=== PATIENT | male | born 1985 | race African-American/Black ===

== ENCOUNTER 2017-04-26 10:47 | Emergency (ER) | payer OTHER ==
[~2017-04-26] VITALS: Ht 170.2 cm; Wt 63.5 kg
[2017-04-26] MEDS ORDERED: LORazepam Inj 2mg/ml 1ml IV ONE (11:15)
[2017-04-26] MEDS: Morphine Sulfate 4mg/ml Inj IVP ONE (11:46)
[2017-04-26 12:02] LABS: APPEARANCE,URINE CLEAR; BASOPHILS % (AUTO) 3.7 % (0.0-2.0); EOSINOPHILS % (AUTO) 3.8 % (0.0-3.0); KETONES,URINE 1+ (NEGATIVE); LEUKOCYTE ESTERASE ,URINE 1+ (NEGATIVE); LYMPHOCYTES % (AUTO) 53.4 % (20.0-45.0); MEAN CORPUSCULAR HGB CONC 33.7 G/DL (32.0-36.0); MEAN CORPUSCULAR VOLUME 101 FL (80-99); MEAN PLATELET VOLUME 6.2 FL (6.5-10.1); MONOCYTES % (AUTO) 11.9 % (1.0-10.0); NEUTROPHILS % (AUTO) 27.3 % (45.0-75.0); NITRITE,URINE NEGATIVE (NEGATIVE); PH,URINE 5 (4.5-8.0); PLATELET COUNT 242 K/UL (150-450); PROTEIN,URINE 2+ (NEGATIVE); RED BLOOD COUNT 4.34 M/UL (4.70-6.10); RED CELL DISTRIBUTION WIDTH 12.5 % (11.6-14.8); UROBILINOGEN,URINE 4 MG/DL (0.0-1.0)
[2017-04-26 12:14] LABS: BACTERIA,URINE OCCASIONAL /HPF; ICTOTEST POSITIVE; MUCUS,URINE MODERATE /LPF (NONE/OCC); SQUAMOUS EPITHELIAL CELL,UR FEW /LPF (NONE/OCC)
[2017-04-26 12:22] LABS: TROPONIN I < 0.30 ng/mL (<=0.30)
[2017-04-26 12:25] LABS: ALANINE AMINOTRANSFERASE 109 U/L (3-41); ALBUMIN/GLOBULIN RATIO 2.3 (1.0-2.7); ANION GAP 20 (5-15); ASPARTATE AMINO TRANSFERASE 192 U/L (5-40); CALCIUM 9.8 mg/dL (8.6-10.2); CARBON DIOXIDE 21 mEQ/L (20-30); CHLORIDE 102 mEQ/L (98-107); CREATININE 0.9 mg/dL (0.7-1.2); GLOMERULAR FILTRATION RATE > 60 mL/min (>60); HEMOLYSIS 6; POTASSIUM 3.8 mEQ/L (3.4-4.9); SODIUM 143 mEQ/L (135-145); TOTAL PROTEIN 7.3 g/dL (6.6-8.7)
[2017-04-26 12:36] LABS: CKMB 15.6 ng/mL (< 6.7)
[2017-04-26 12:46] LABS: BILIRUBIN,DIRECT 0.4 mg/dL (0.1-0.3)
[2017-04-26 12:47] VITALS: BP 118/76
--- NOTE | 2017-04-26 13:25 | Diagnostic Imaging Report ---
Indications: Bilateral flank pain Technique: Continuous helical CT imaging of the abdomen and pelvis was performed with automatic exposure control on a Siemens sensation [address] scanner. Axial, coronal, and sagittal images were reconstructed at 3 mm slice thickness. No oral or IV contrast was administered per protocol. CTDI volume(s): 10 mGy Total DLP: 524 mGy-cm Findings: Comparison: None. Kidneys, ureters, distended urinary bladder demonstrate no intraparenchymal or intraluminal stones, collecting system or ureteral dilation, perinephric or periureteral stranding. The appendix is unremarkable. The gastrointestinal tract is nondistended. Collapsed. Segments of left-sided colon difficult to evaluate. No obvious mural thickening, adjacent stranding, extraluminal gas or fluid collections are demonstrated. Unenhanced liver parenchyma mildly decreased attenuation. Remainder of visualized abdominopelvic anatomy demonstrates no other obvious abnormality, though lack of oral and IV contrast limits evaluation. Pleural-based linear densities in both lung bases.. L3-4 disc space narrowing with marginal osteophyte formation. IMPRESSION: No evidence of renal or ureteral stone, hydronephrosis or hydroureter. Unremarkable appendix -- no evidence of acute appendicitis. No other evidence of acute abdominopelvic disease. Lack of oral and IV contrast limits evaluation, however, and subtle abnormalities may be missed. Repeat CT scan with full oral and IV contrast preparation recommended for more complete evaluation, as clinically indicated. Suggestion of hepatic steatosis Pulmonary bibasal subsegmental atelectasis Mild lumbar degenerative disc disease The CT scanner at [facility] is accredited by the [employer] and the scans are performed using protocols designed to limit radiation exposure to as low as reasonably achievable to attain images of sufficient resolution adequate for diagnostic evaluation.
[2017-04-26] MEDS ORDERED: NORCO 5-325 TA1 EACH ORAL (13:45)
[2017-04-26] MEDS ORDERED: XANAX0.25 MG ORAL (13:45)
[2017-04-26] MEDS ORDERED: BACTRIM DS TAB1 EAC1 ORAL (13:49)
[2017-04-26 13:50] VITALS: BP 113/78
--- NOTE | 2017-04-27 07:16 | Emergency Room Report ---
History of Present Illness General Chief Complaint: General Complaint Source: Patient Present Illness HPI Patient presents emergency department today complaining of severe anxiety shortness of breath chest discomfort and right flank pain. Patient states that he gets these attacks from time to time and symptoms are fairly severe. He is tearful and unable to provide much history. Patient however does state that he was at [facility] a few days ago and was told that everything was okay. I contacted [facility] and at that time had laboratory workup in the past he has had workup for alcohol abuse. And drug abuse. There has not been a CAT scan performed in the past.No other modifying factors. No other associated signs and symptoms. No other complaints were noted. Allergies: Coded Allergies: No Known Allergies (Unverified , 04/26/17) Patient History Past Medical History: CAD, other - kidney problem Past Surgical History: none Pertinent Family History: none Social History: Reports: alcohol use, drug use, smoking Reviewed Nursing Documentation: PMH: Agreed, PSxH: Agreed Nursing Documentation-PMH Past Medical History: No History, Except For Hx Cardiac Problems: Yes Hx Dialysis: Yes - 'undiagonsed renal problem' History Of Psychiatric Problem: Yes Review of Systems All Other Systems: limited - atient is anxious and noncompliant Physical Exam Vital Signs Date Time Temp Pulse Resp B/P Pulse Ox O2 Delivery O2 Flow Rate FiO2 04/26/17 10:41 98.1 89 18 159/91 99 Room Air Sp02 EP Interpretation: reviewed, normal General Appearance: alert, moderate distress - nxious Head: atraumatic Eyes: bilateral eye normal inspection ENT: normal ENT inspection, hearing grossly normal, normal voice Neck: normal inspection, full range of motion, supple, no bony tend Respiratory: normal inspection, lungs clear, normal breath sounds, no respiratory distress, no retraction, no wheezing Cardiovascular #1: regular rate, rhythm, no edema Gastrointestinal: normal inspection, normal bowel sounds, non tender, soft, no guarding, no hernia Genitourinary: other - right flank tenderness Musculoskeletal: normal inspection, back normal, normal range of motion Neurologic: normal inspection, alert, responsive, speech normal Psychiatric: depressed affect, anxious Skin: normal inspection, normal color, no rash Medical Decision Making Diagnostic Impression: Primary Impression: UTI (urinary tract infection) Qualified Codes: N30.00 - Acute cystitis without hematuria Additional Impressions: Chronic pain Qualified Codes: G89.4 - Chronic pain syndrome Anxiety ER Course Patient presents emergency department today complaining dysuria or flank pain chest pain. Differential considerations include acute electrolyte abnormality, acute kidney stone, anxiety, UTI just to name a few.Given the severity of the patient's presentation I felt this is a highly complex patient. This patient required extensive workup. Patient laboratory workup was normal. EKG chest x- ray CT scan were not impressive. Urine did show small amount of blood leukocytes consistent with UTI. Patient was given a prescription for antibiotics and Xanax for anxiety. Patient was given benzodiazepines in emergency Department symptoms improved.Given the patient feels much better, and he had a negative workup, I feel the patient can be discharged home.Patient is advised to follow up with primary doctor in 2-3 days and return the emergency room for any worsening symptoms and as needed. Labs Test 04/26/17 11:30 White Blood Count 4.0 K/UL (4.8-10.8) Red Blood Count 4.34 M/UL (4.70-6.10) Hemoglobin 14.8 G/DL (14.2-18.0) Hematocrit 43.8 % (42.0-52.0) Mean Corpuscular Volume 101 FL (80-99) Mean Corpuscular Hemoglobin 34.0 PG (27.0-31.0) Mean Corpuscular Hemoglobin Concent 33.7 G/DL (32.0-36.0) Red Cell Distribution Width 12.5 % (11.6-14.8) Platelet Count 242 K/UL (150-450) Mean Platelet Volume 6.2 FL (6.5-10.1) Neutrophils (%) (Auto) 27.3 % (45.0-75.0) Lymphocytes (%) (Auto) 53.4 % (20.0-45.0) Monocytes (%) (Auto) 11.9 % (1.0-10.0) Eosinophils (%) (Auto) 3.8 % (0.0-3.0) Basophils (%) (Auto) 3.7 % (0.0-2.0) Urine Color Yellow Urine Appearance Clear Urine pH 5 (4.5-8.0) Urine Specific [place] 1.025 (1.005-1.035) Urine Protein 2+ (NEGATIVE) Urine Glucose (UA) Negative (NEGATIVE) Urine Ketones 1+ (NEGATIVE) Urine Occult Blood 1+ (NEGATIVE) Urine Nitrite Negative (NEGATIVE) Urine Bilirubin 1+ (NEGATIVE) Urine Ictotest Positive Urine Urobilinogen 4 MG/DL (0.0-1.0) Urine Leukocyte Esterase 1+ (NEGATIVE) Urine RBC 2-4 /HPF (0 - 0) Urine WBC 2-4 /HPF (0 - 0) Urine Squamous Epithelial Cells Few /LPF (NONE/OCC) Urine Bacteria Occasional /HPF (NONE) Urine Mucus Moderate /LPF (NONE/OCC) Sodium Level 143 mEQ/L (135-145) Potassium Level 3.8 mEQ/L (3.4-4.9) Chloride Level 102 mEQ/L (98-107) Carbon Dioxide Level 21 mEQ/L (20-30) Anion Gap 20 (5-15) Blood Urea Nitrogen 15 mg/dL (7-23) Creatinine 0.9 mg/dL (0.7-1.2) Estimat Glomerular Filtration Rate > 60 mL/min (>60) Glucose Level 100 mg/dL (74-106) Calcium Level 9.8 mg/dL (8.6-10.2) Total Bilirubin 1.5 mg/dL (0.0-1.2) Direct Bilirubin 0.4 mg/dL (0.1-0.3) Aspartate Amino Transf (AST/SGOT) 192 U/L (5-40) Alanine Aminotransferase (ALT/SGPT) 109 U/L (3-41) Alkaline Phosphatase 85 U/L (40-129) Total Creatine Kinase 710 U/L (38-174) Creatine Kinase MB 15.6 ng/mL (< 6.7) Creatine Kinase MB Relative Index 2.1 Troponin I < 0.30 ng/mL (<=0.30) Total Protein 7.3 g/dL (6.6-8.7) Albumin 5.1 g/dL (3.5-5.2) Globulin 2.2 g/dL Albumin/Globulin Ratio 2.3 (1.0-2.7) Lipase 30 U/L (< 60) Urine Opiates Screen Negative (NEGATIVE) Urine Barbiturates Screen Negative (NEGATIVE) Phencyclidine (PCP) Screen Negative (NEGATIVE) Urine Amphetamines Screen Negative (NEGATIVE) Urine Benzodiazepines Screen Positive (NEGATIVE) Urine Cocaine Screen Negative (NEGATIVE) Urine Marijuana (THC) Screen Positive (NEGATIVE) EKG Diagnostic Results Rate: normal Rhythm: NSR ST Segments: no acute changes Rhythm Strip Diag. Results EP Interpretation: yes Rate: 80s Rhythm: NSR, no PVC's, no ectopy Chest X-Ray Diagnostic Results Chest X-Ray Diagnostic Results : Chest X-Ray Ordered: Yes # of Views/Limited/Complete: 1 View Indication: Chest Pain EP Interpretation: Yes Interpretation: no consolidation, no effusion, no pneumothorax, no acute cardiopulmonary disease Impression: No acute disease Interpreting ER Provider: Electronically signed by Emilio King MD Last Vital Signs Date Time Temp Pulse Resp B/P Pulse Ox O2 Delivery O2 Flow Rate FiO2 04/26/17 13:50 69 14 113/78 98 Room Air 04/26/17 12:47 98.0 Status: improved Disposition: HOME, SELF-CARE Condition: Stable Scripts Trimethoprim/Sulfamethoxazole 160/800* (BACTRIM DS TABLET*) 1 Each Tablet 1 TAB ORAL Q12H, #14 TAB 0 Refills Prov: EMILIO KING M.D. 04/26/17 Alprazolam* (XANAX*) 0.25 Mg Tablet 0.25 MG ORAL TID Y for PRN Agitation/Anxiety, #20 TAB 0 Refills Prov: EMILIO KING M.D. 04/26/17 Hydrocodone Bit/Acetaminophen 5-325* (NORCO 5-325*) 1 Each Tablet 1 TAB ORAL Q6H Y for For Pain, #20 TAB 0 Refills Prov: EMILIO KING M.D. 04/26/17 Patient Instructions: Urinary Tract Infection, Panic Attacks, Stress and Stress Management EMILIO KING M.D. Apr 27, 2017 07:16
--- NOTE | 2017-04-27 08:33 | Diagnostic Imaging Report ---
Indication: Tachypnea, shortness of breath Technique: Single portable AP view of the chest. Findings: Comparison: None. Minimal scoliosis in thoracic spine. The extra pulmonary soft tissues, cardiomediastinal silhouette, pulmonary vasculature and parenchyma, and pleural surfaces are unremarkable. IMPRESSION: Scoliosis Otherwise negative portable AP chest .
== END 2017-04-26 13:50 | disposition home or self-care (01) ==
LOC: EDBD 10:47 → EMR 11:30
DX: N39.0 Urinary tract infection, site not specified (principal); G89.29 Other chronic pain; F41.9 Anxiety disorder, unspecified; F17.200 Nicotine dependence, unspecified, uncomplicated; I25.10 Atherosclerotic heart disease of native coronary artery without angina pectoris; M51.36 Other intervertebral disc degeneration, lumbar region; M41.9 Scoliosis, unspecified
CPT/HCPCS: 36415; 71010; 74176; 80053; 80300; 81003; 82248; 82550; 82553; 83690; 84484; 85025; 93005; 96374; 96375; 99284; J2270; J2405

== ENCOUNTER 2017-05-17 18:49 | Emergency (ER) | payer OTHER ==
[~2017-05-17] VITALS: Ht 170.2 cm; Wt 68.0 kg
[~2017-05-17 18:49] MED LIST: BACTRIM DS TAB1 EAC1 ORAL; NORCO 5-325 TA1 EACH ORAL; XANAX0.25 MG ORAL
[2017-05-17] MEDS ORDERED: LORazepam Inj 2mg/ml 1ml IV ONE (19:00)
[2017-05-17 19:01] VITALS: BP 127/76
--- NOTE | 2017-05-17 19:11 | Emergency Room Report ---
History of Present Illness General Chief Complaint: General Complaint Source: Patient, EMS Present Illness HPI 31YOM BIBEMS for "severe anxiety" and "pain all over." Patient told EMS was at other hospitals recently for "same thing." He denies SI, HI, AVH Patient very tearful, not really providing additional HPI patient was here 04/26 Had Labs/UTox and CTAP UTox + for MJ Was given Rx for xanax Allergies: Coded Allergies: No Known Allergies (Unverified , 04/26/17) Patient History Past Medical History: none Past Surgical History: none Pertinent Family History: none Social History: Denies: alcohol use, drug use, smoking Immunizations: UTD Reviewed Nursing Documentation: PMH: Agreed, PSxH: Agreed Nursing Documentation-PMH Hx Cardiac Problems: Yes Hx Dialysis: Yes - 'undiagonsed renal problem' History Of Psychiatric Problem: Yes - anxiety Review of Systems All Other Systems: negative except mentioned in HPI Physical Exam Vital Signs Date Time Temp Pulse Resp B/P Pulse Ox O2 Delivery O2 Flow Rate FiO2 05/17/17 18:49 98.4 65 28 150/85 98 Room Air Sp02 EP Interpretation: reviewed, normal General Appearance: normal inspection, well appearing, no apparent distress, alert, GCS 15, non-toxic Head: normocephalic, atraumatic Eyes: bilateral eye EOMI, bilateral eye PERRL ENT: normal ENT inspection, hearing grossly normal, normal voice Neck: normal inspection, full range of motion, supple, no bony tend Respiratory: normal inspection, lungs clear, normal breath sounds, no respiratory distress, no retraction, no wheezing Cardiovascular #1: no edema, no gallop, no JVD, tachycardia Gastrointestinal: normal inspection, normal bowel sounds, non tender, soft, no guarding, no hernia Genitourinary: no CVA tenderness Musculoskeletal: normal inspection, back normal, normal range of motion, Priya' s Sign negative Neurologic: normal inspection, alert, oriented x3, responsive, child psychology teacher III-XII nml as tested, motor strength/tone normal, speech normal Psychiatric: normal inspection, judgement/insight normal, mood/affect normal Skin: normal inspection, normal color, no rash Lymphatic: normal inspection Medical Decision Making Diagnostic Impression: Primary Impression: Anxiety Additional Impressions: Tachycardia Drug-seeking behavior ER Course Initial tachycardia resolved Lungs CTAB O2 sat normal Low suspicion for PTX or other acute cardiopulm process Feels better after IV ativan Asking for "full body MRI" that his "doctor ordered." States no CT/blood tests were done on previous ED visit when in fact they were Asking for Rx Noco Concern for drug seeking behavior Last Vital Signs Date Time Temp Pulse Resp B/P Pulse Ox O2 Delivery O2 Flow Rate FiO2 05/17/17 19:01 99 23 127/76 100 Room Air 05/17/17 18:49 98.4 Status: improved Disposition: HOME, SELF-CARE ALYSE IVEY M.D. May 17, 2017 19:11
[2017-05-17 20:20] VITALS: BP 126/88
[2017-05-18] MEDS ORDERED: NKM (22:15)
== END 2017-05-17 20:20 | disposition home or self-care (01) ==
LOC: EDBD 18:49 → EMR 19:33
DX: F41.9 Anxiety disorder, unspecified (principal); R00.0 Tachycardia, unspecified; Z76.5 Malingerer [conscious simulation]
CPT/HCPCS: 96374; 99284

== ENCOUNTER 2017-05-18 22:21 | Emergency (ER) | payer OTHER ==
[~2017-05-18] VITALS: Ht 170.2 cm; Wt 56.7 kg
[~2017-05-18 22:21] MED LIST changes: +NKM
--- NOTE | 2017-05-18 22:21 | Emergency Room Report ---
History of Present Illness General Source: Patient, Medical Record, EMS Present Illness HPI 31YOM BIBEMS for anxiety +AOB, drinking ETOH today Patient here multiple times recently for same Last seen here by me Did not followup with outpatient psych Requesting Rx Talmage or Ativan again Strong concern for narcotic/benzo seeking behavior Per EMS, vitals stable on scene. Not tachycardic. Was able to be reassured and calmed Allergies: Coded Allergies: No Known Allergies (Unverified , 05/18/17) Patient History Past Medical History: none Past Surgical History: none Pertinent Family History: none Social History: Reports: alcohol use, drug use Immunizations: UTD Reviewed Nursing Documentation: PMH: Agreed, PSxH: Agreed Review of Systems All Other Systems: negative except mentioned in HPI Physical Exam Sp02 EP Interpretation: reviewed, normal General Appearance: normal inspection, well appearing, no apparent distress, alert, GCS 15, non-toxic, other - +AOB Head: normocephalic, atraumatic Eyes: bilateral eye EOMI, bilateral eye PERRL ENT: normal ENT inspection, hearing grossly normal, normal voice Neck: normal inspection, full range of motion, supple, no bony tend Respiratory: normal inspection Cardiovascular #1: regular rate, rhythm, no edema Gastrointestinal: normal inspection, normal bowel sounds, non tender, soft, no guarding, no hernia Genitourinary: no CVA tenderness Musculoskeletal: normal inspection, back normal, normal range of motion, Priya' s Sign negative Neurologic: normal inspection, alert, oriented x3, responsive, senior linux unix engineer III-XII nml as tested, motor strength/tone normal, speech normal Psychiatric: normal inspection, judgement/insight normal, mood/affect normal Skin: normal inspection Lymphatic: normal inspection Medical Decision Making Diagnostic Impression: Primary Impression: Anxiety Additional Impression: Drug-seeking behavior Status: improved Disposition: HOME, SELF-CARE ALYSE IVEY M.D. May 18, 2017 22:21
[2017-05-18] MEDS ORDERED: LORazepam 0.5mg tab ORAL ONE (22:30)
[2017-05-18 23:11] VITALS: BP 135/90
[2017-05-18 23:14] VITALS: BP 134/90
== END 2017-05-18 23:50 | disposition home or self-care (01) ==
LOC: EDBD 22:21 → EMR 22:25
DX: F41.9 Anxiety disorder, unspecified (principal); Z76.5 Malingerer [conscious simulation]
CPT/HCPCS: 99282

== ENCOUNTER 2017-06-04 12:26 | Emergency (ER) | payer SELFPAY ==
[~2017-06-04] VITALS: Ht 172.7 cm; Wt 63.5 kg
[2017-06-04] VITALS (8 sets, daily range): BP systolic 108–145; BP diastolic 72–107
[2017-06-04] MEDS ORDERED: LORazepam 1mg tab ORAL ONE (14:45)
--- NOTE | 2017-06-04 14:47 | Emergency Room Report ---
History of Present Illness General Chief Complaint: General Complaint Source: Patient, Medical Record (ALYSE RUBI M.D.) Present Illness HPI 31YOM [address] for anxiety - anxious about "everything." Homeless. has family here but cough surfing because "they dont want me." Multiple visits here for anxiety Associated with weakness, loss of appetite, low energy Denies SI, HI, AVH Denies history of depression States signed himself out of [facility] last week where he was told he had "high liver enzymes." He endorses to ETOH. Both previous vists here patient was intoxicated as well. (ALYSE RUBI M.D.) Allergies: Coded Allergies: No Known Allergies (Unverified , 04/26/17) Nursing Documentation-[facility] Past Medical History: No History, Except For Hx Cardiac Problems: Yes Hx Dialysis: Yes - 'undiagonsed renal problem' (ALYSE RUBI M.D.) Physical Exam Vital Signs Date Time Temp Pulse Resp B/P (MAP) Pulse Ox O2 Delivery O2 Flow Rate FiO2 06/04/17 12:23 98.4 77 18 145/107 99 Room Air (ALYSE RUBI M.D.) Medical Decision Making Diagnostic Impression: Primary Impression: Alcohol intoxication Qualified Codes: F10.920 - Alcohol use, unspecified with intoxication, uncomplicated Additional Impression: Weakness ER Course Please see note from Dr. Rubi. Patient evaluated and states too weak to go. Dr. Rubi requested that we obtain social services specialist consult. Patient signed out to Dr. Mayo. Laboratory Tests Test 06/04/17 14:40 White Blood Count 3.4 K/UL (4.8-10.8) L Red Blood Count 4.17 M/UL (4.70-6.10) L Hemoglobin 14.3 G/DL (14.2-18.0) Hematocrit 42.2 % (42.0-52.0) Mean Corpuscular Volume 101 FL (80-99) H Mean Corpuscular Hemoglobin 34.3 PG (27.0-31.0) H Mean Corpuscular Hemoglobin Concent 33.9 G/DL (32.0-36.0) Red Cell Distribution Width 12.4 % (11.6-14.8) Platelet Count 257 K/UL (150-450) Mean Platelet Volume 6.0 FL (6.5-10.1) L Neutrophils (%) (Auto) % (45.0-75.0) Lymphocytes (%) (Auto) % (20.0-45.0) Monocytes (%) (Auto) % (1.0-10.0) Eosinophils (%) (Auto) % (0.0-3.0) Basophils (%) (Auto) % (0.0-2.0) Differential Total Cells Counted 100 Neutrophils % (Manual) 48 % (45-75) Lymphocytes % (Manual) 43 % (20-45) Monocytes % (Manual) 7 % (1-10) Eosinophils % (Manual) 0 % (0-3) Basophils % (Manual) 2 % (0-2) Band Neutrophils 0 % (0-8) Platelet Estimate Adequate Platelet Morphology Normal Red Blood Cell Morphology Normal Sodium Level 142 mEQ/L (135-145) Potassium Level 4.1 mEQ/L (3.4-4.9) Chloride Level 102 mEQ/L (98-107) Carbon Dioxide Level 27 mEQ/L (20-30) Anion Gap 13 (5-15) Blood Urea Nitrogen 17 mg/dL (7-23) Creatinine 0.9 mg/dL (0.7-1.2) Estimate Glomerular Filtration Rate > 60 mL/min (>60) Glucose Level 112 mg/dL (74-106) H Calcium Level 8.7 mg/dL (8.6-10.2) Total Bilirubin 1.5 mg/dL (0.0-1.2) H Direct Bilirubin 0.8 mg/dL (0.1-0.3) H Aspartate Amino Transferase (AST) 781 U/L (5-40) H Alanine Aminotransferase (ALT) 349 U/L (3-41) H Alkaline Phosphatase 113 U/L (40-129) Total Creatine Kinase 74 U/L (38-174) Creatine Kinase MB < 1.5 ng/mL (< 6.7) Creatine Kinase MB Relative Index Troponin I < 0.30 ng/mL (<=0.30) Total Protein 6.3 g/dL (6.6-8.7) L Albumin 4.2 g/dL (3.5-5.2) Globulin 2.1 g/dL Albumin/Globulin Ratio 2.0 (1.0-2.7) Urine Opiates Screen Negative (NEGATIVE) Urine Barbiturates Screen Negative (NEGATIVE) Phencyclidine (PCP) Screen Negative (NEGATIVE) Urine Amphetamines Screen Negative (NEGATIVE) Urine Benzodiazepines Screen Negative (NEGATIVE) Urine Cocaine Screen Negative (NEGATIVE) Urine Marijuana (THC) Screen Positive (NEGATIVE) H Serum Alcohol 284 mg/dL (Hans Cali M.D.) ER Course Patient signed out to me. Patient came in complaining of anxiety and alcohol intoxication. He slept for several hours here. He walked to the bathroom without any difficulty. I see no need for social services specialist consult in the middle of the night. We'll discharge home. (NUNU MAYO M.D.) Last Vital Signs Date Time Temp Pulse Resp B/P (MAP) Pulse Ox O2 Delivery O2 Flow Rate FiO2 06/04/17 13:17 61 18 120/88 99 Room Air 06/04/17 12:23 98.4 (ALYSE RUBI M.D.) Status: improved (Hans Cali M.D.) Status: improved (NUNU MAYO M.D.) Disposition: HOME, SELF-CARE Condition: Stable Scripts Chlordiazepoxide Hcl* (LIBRIUM*) 10 Mg Capsule 10 MG ORAL THREE TIMES A DAY, #15 CAP 0 Refills Prov: NUNU MAYO M.D. 06/05/17 Referrals: [facility] (PCP) Additional Instructions: abstain from alcohol. Followup with your DrTri in 7 days. Return if worse. ALYSE RUBI M.D. Jun 04, 2017 14:47 Hans Cali M.D. Jun 04, 2017 23:40 NUNU MAYO M.D. Jun 05, 2017 00:03
[2017-06-04 15:16] LABS: MEAN CORPUSCULAR HEMOGLOBIN 34.3 PG (27.0-31.0); MEAN CORPUSCULAR HGB CONC 33.9 G/DL (32.0-36.0); MEAN CORPUSCULAR VOLUME 101 FL (80-99); PLATELET COUNT 257 K/UL (150-450); RED BLOOD COUNT 4.17 M/UL (4.70-6.10); RED CELL DISTRIBUTION WIDTH 12.4 % (11.6-14.8); WHITE BLOOD COUNT 3.4 K/UL (4.8-10.8)
[2017-06-04 15:33] LABS: ALANINE AMINOTRANSFERASE 349 U/L (3-41); ANION GAP 13 (5-15); ASPARTATE AMINO TRANSFERASE 781 U/L (5-40); CALCIUM 8.7 mg/dL (8.6-10.2); CARBON DIOXIDE 27 mEQ/L (20-30); CHLORIDE 102 mEQ/L (98-107); CREATININE 0.9 mg/dL (0.7-1.2); GLOMERULAR FILTRATION RATE > 60 mL/min (>60); HEMOLYSIS 17; POTASSIUM 4.1 mEQ/L (3.4-4.9); SODIUM 142 mEQ/L (135-145); TOTAL PROTEIN 6.3 g/dL (6.6-8.7); TROPONIN I < 0.30 ng/mL (<=0.30)
[2017-06-04 15:43] LABS: CKMB < 1.5 ng/mL (< 6.7)
[2017-06-04 15:53] LABS: BILIRUBIN,DIRECT 0.8 mg/dL (0.1-0.3)
[2017-06-04 16:33] LABS: BAND NEUTROPHILS % (MANUAL) 0 % (0-8); BASOPHILS % (MANUAL) 2 % (0-2); EOSINOPHILS % (MANUAL) 0 % (0-3); LYMPHOCYTES % (MANUAL) 43 % (20-45); NEUTROPHILS % (MANUAL) 48 % (45-75); PLATELET ESTIMATE ADEQUATE; PLATELET MORPHOLOGY NORMAL; TOTAL CELLS COUNTED 100
[2017-06-05] MEDS ORDERED: LIBRIUM10 MG ORAL (00:03)
[2017-06-05 00:10] VITALS: BP 126/78
--- NOTE | 2017-06-05 11:36 | Diagnostic Imaging Report ---
Indication: Dyspnea Comparison: 04/26/17 A single view chest radiograph was obtained. Findings: Cardiomediastinal appearance is within normal limits for age. Pulmonary vascularity is appropriate. The diaphragmatic contour is smooth and costophrenic angles are sharp. No pleural effusions are identified. The bones are unremarkable. Impression: No acute findings
--- NOTE | 2017-06-06 16:33 | Cardiology Report ---
APPROVED REPORT EKG Measurement Heart [id number] Normal sinus rhythm Normal ECG
== END 2017-06-05 00:10 | disposition home or self-care (01) ==
LOC: EDBD 12:26 → EMR 14:44
DX: F10.129 Alcohol abuse with intoxication, unspecified (principal); R53.1 Weakness; F41.9 Anxiety disorder, unspecified; Z59.0 Homelessness
CPT/HCPCS: 36415; 71010; 80053; 80300; 82248; 82550; 82553; 84484; 85007; 85025; 93005; 96360; 96361; 99284; G0480; 80329

== ENCOUNTER 2017-08-03 11:20 | Emergency (ER) | payer OTHER ==
[~2017-08-03] VITALS: Ht 165.1 cm; Wt 59.0 kg
[~2017-08-03 11:20] MED LIST changes: +LIBRIUM10 MG ORAL
[2017-08-03] MEDS ORDERED: Pantoprazole Inj IV ONE (11:30)
[2017-08-03] MEDS ORDERED: LORazepam Inj 2mg/ml 1ml IV ONE (11:30)
--- NOTE | 2017-08-03 12:15 | Diagnostic Imaging Report ---
Indication: COUGH Technique: One view of the chest Comparison: 06/04/2017 Findings: Lungs and pleural spaces are clear. Heart size is normal. No significant change Impression: No acute process
[2017-08-03 12:28] LABS: ALANINE AMINOTRANSFERASE 144 U/L (12-78); ALBUMIN 3.8 G/DL (3.4-5.0); ALBUMIN/GLOBULIN RATIO 1.1 (1.0-2.7); ALKALINE PHOSPHATASE 218 U/L (46-116); ANION GAP 18 mmol/L (5-15); ASPARTATE AMINO TRANSFERASE 152 U/L (15-37); BILIRUBIN,TOTAL 4.1 MG/DL (0.2-1.0); BLOOD UREA NITROGEN 23 mg/dL (7-18); CARBON DIOXIDE 18 MMOL/L (21-32); CHLORIDE 100 MMOL/L (98-107); CREATININE 1.1 MG/DL (0.55-1.30); POTASSIUM 3.6 MMOL/L (3.5-5.1); SODIUM 136 MMOL/L (136-145)
[2017-08-03 12:29] LABS: APPEARANCE,URINE CLEAR; BILIRUBIN, URINE NEGATIVE (NEGATIVE); GLUCOSE, URINE (UA) NEGATIVE (NEGATIVE); KETONES,URINE NEGATIVE (NEGATIVE); LEUKOCYTE ESTERASE ,URINE NEGATIVE (NEGATIVE); NITRITE,URINE NEGATIVE (NEGATIVE); PH,URINE 6 (4.5-8.0); PROTEIN,URINE NEGATIVE (NEGATIVE); UROBILINOGEN,URINE NORMAL MG/DL (0.0-1.0)
[2017-08-03 12:33] LABS: COLOR,URINE YELLOW
[2017-08-03 12:40] LABS: HEMATOCRIT 38.6 % (42.0-52.0); HEMOGLOBIN 12.7 G/DL (14.2-18.0); MEAN CORPUSCULAR VOLUME 108 FL (80-99); PLATELET COUNT 232 K/UL (150-450); RED BLOOD COUNT 3.56 M/UL (4.70-6.10); RED CELL DISTRIBUTION WIDTH 13.6 % (11.6-14.8); WHITE BLOOD COUNT 2.2 K/UL (4.8-10.8)
[2017-08-03] MEDS ORDERED: ZOFRAN4 MG ORAL (12:53)
[2017-08-03] MEDS ORDERED: LIBRIUM10 MG ORAL (12:53)
[2017-08-03 13:01] LABS: BILIRUBIN,DIRECT 3.4 MG/DL (0.0-0.3)
[2017-08-03 13:12] VITALS: BP 116/75
--- NOTE | 2017-08-03 13:33 | Emergency Room Report ---
History of Present Illness General Chief Complaint: Abdominal Pain Source: Patient Present Illness HPI Patient has a history alcohol abuse with alcohol withdrawal symptoms. Patient has a history of gastritis. Patient has been drinking large amount alcohol today and develop acute onset of nausea vomiting associated epigastric discomfort. He denies any fever chest pain shortness of breath. Symptoms are noted to be highly severe. Patient denies dysuria urinary frequency. Pain is nonradiating.No other modifying factors. No other associated signs and symptoms. No other complaints were noted. Allergies: Coded Allergies: No Known Allergies (Unverified , 04/26/17) Patient History Past Medical History: other - liver cirrhosis, alcoholic gastitis Past Surgical History: none Pertinent Family History: none Social History: Reports: alcohol use Reviewed Nursing Documentation: PMH: Agreed, PSxH: Agreed Nursing Documentation-PMH Past Medical History: No History, Except For Hx Cardiac Problems: Yes Hx Hypertension: Yes Hx Gastrointestinal Problems: Yes - gastritis, cirrhosis Hx Dialysis: Yes - 'undiagonsed renal problem' History Of Psychiatric Problem: Yes - Depresion Review of Systems All Other Systems: negative except mentioned in HPI Physical Exam Vital Signs Date Time Temp Pulse Resp B/P (MAP) Pulse Ox O2 Delivery O2 Flow Rate FiO2 08/03/17 11:11 97.3 99 18 126/99 98 Room Air Sp02 EP Interpretation: reviewed, normal General Appearance: normal inspection, well appearing, no apparent distress, alert Head: atraumatic Eyes: bilateral eye normal inspection ENT: normal ENT inspection, hearing grossly normal, normal voice Neck: normal inspection, full range of motion, supple, no bony tend Respiratory: normal inspection, lungs clear, normal breath sounds, no respiratory distress, no retraction, no wheezing Cardiovascular #1: regular rate, rhythm, no edema Gastrointestinal: normal inspection, normal bowel sounds, soft, tenderness - epigastric Genitourinary: no CVA tenderness Musculoskeletal: normal inspection, back normal, normal range of motion Neurologic: normal inspection, alert, responsive, speech normal Psychiatric: depressed affect, anxious Skin: normal inspection, normal color, no rash Medical Decision Making Diagnostic Impression: Primary Impression: Hepatitis Additional Impressions: Alcohol abuse Gastritis ER Course Patient presents to the emergency department today complaining of abdominal pain. Differential considerations include acute pancreatitis, cholecystitis, gastritis, hepatitis, appendicitis just to name a few. Given the severity of the patient's presentation I felt this is a highly complex patient. This patient required extensive workup. Patient laboratory workup and exam is consistent with acute alcohol gastritis and hepatitis. Patient was given pain medications fluids and feels better. Patient was given Ativan to prevent alcohol withdrawal. Patient was monitored in emergency department to his clinically sober. Patient was given prescription for Librium and advised to stop abusing alcohol.Patient is advised to follow up with primary doctor in 2-3 days and return the emergency room for any worsening symptoms and as needed. Labs Test 08/03/17 11:37 08/03/17 12:15 08/03/17 12:23 Sodium Level 136 MMOL/L (136-145) Potassium Level 3.6 MMOL/L (3.5-5.1) Chloride Level 100 MMOL/L (98-107) Carbon Dioxide Level 18 MMOL/L (21-32) Anion Gap 18 mmol/L (5-15) Blood Urea Nitrogen 23 mg/dL (7-18) Creatinine 1.1 MG/DL (0.55-1.30) Estimat Glomerular Filtration Rate > 60 mL/min (>60) Glucose Level 139 MG/DL (74-106) Calcium Level 9.0 MG/DL (8.5-10.1) Total Bilirubin 4.1 MG/DL (0.2-1.0) Direct Bilirubin 3.4 MG/DL (0.0-0.3) Aspartate Amino Transf (AST/SGOT) 152 U/L (15-37) Alanine Aminotransferase (ALT/SGPT) 144 U/L (12-78) Alkaline Phosphatase 218 U/L (46-116) Total Protein 7.4 G/DL (6.4-8.2) Albumin 3.8 G/DL (3.4-5.0) Globulin 3.6 g/dL Albumin/Globulin Ratio 1.1 (1.0-2.7) Lipase 138 U/L (73-393) Serum Alcohol 270 mg/dL White Blood Count 2.2 K/UL (4.8-10.8) Red Blood Count 3.56 M/UL (4.70-6.10) Hemoglobin 12.7 G/DL (14.2-18.0) Hematocrit 38.6 % (42.0-52.0) Mean Corpuscular Volume 108 FL (80-99) Mean Corpuscular Hemoglobin 35.7 PG (27.0-31.0) Mean Corpuscular Hemoglobin Concent 32.9 G/DL (32.0-36.0) Red Cell Distribution Width 13.6 % (11.6-14.8) Platelet Count 232 K/UL (150-450) Mean Platelet Volume 5.8 FL (6.5-10.1) Neutrophils (%) (Auto) % (45.0-75.0) Lymphocytes (%) (Auto) % (20.0-45.0) Monocytes (%) (Auto) % (1.0-10.0) Eosinophils (%) (Auto) % (0.0-3.0) Basophils (%) (Auto) % (0.0-2.0) Urine Color Yellow Urine Appearance Clear Urine pH 6 (4.5-8.0) Urine Specific [place] 1.010 (1.005-1.035) Urine Protein Negative (NEGATIVE) Urine Glucose (UA) Negative (NEGATIVE) Urine Ketones Negative (NEGATIVE) Urine Occult Blood Negative (NEGATIVE) Urine Nitrite Negative (NEGATIVE) Urine Bilirubin Negative (NEGATIVE) Urine Urobilinogen Normal MG/DL (0.0-1.0) Urine Leukocyte Esterase Negative (NEGATIVE) Last Vital Signs Date Time Temp Pulse Resp B/P (MAP) Pulse Ox O2 Delivery O2 Flow Rate FiO2 08/03/17 13:12 97.3 19 116/75 96 Room Air 08/03/17 11:11 99 Status: improved Disposition: HOME, SELF-CARE Condition: Stable Scripts Chlordiazepoxide Hcl* (LIBRIUM*) 10 Mg Capsule 10 MG ORAL THREE TIMES A DAY, #15 CAP 0 Refills Prov: EMILIO KING M.D. 08/03/17 Ondansetron (Zofran) 4 Mg Tablet 4 MG ORAL Q6H Y for Nausea & Vomiting, #20 TAB 0 Refills Prov: EMILIO KING M.D. 08/03/17 Patient Instructions: Gastritis, Adult EMILIO KING M.D. Aug 03, 2017 13:33
[2017-08-03] MEDS ORDERED: PEPCID40 MG PO (13:34)
[2017-08-03 13:39] VITALS: BP 112/79
== END 2017-08-03 13:40 | disposition home or self-care (01) ==
LOC: EDBD 11:20 → EMR 12:35
DX: R10.9 Unspecified abdominal pain (principal); R11.2 Nausea with vomiting, unspecified; K75.9 Inflammatory liver disease, unspecified; K29.70 Gastritis, unspecified, without bleeding; F10.10 Alcohol abuse, uncomplicated; I10 Essential (primary) hypertension; K74.60 Unspecified cirrhosis of liver; F32.9 Major depressive disorder, single episode, unspecified
CPT/HCPCS: 36415; 71010; 80053; 80329; 81003; 82248; 83690; 85007; 85025; 96361; 96374; 96375; 99284; C9113; J2405

== ENCOUNTER 2017-09-10 14:56 | Emergency (ER) | payer OTHER ==
[~2017-09-10] VITALS: Ht 162.6 cm; Wt 59.0 kg
[~2017-09-10 14:56] MED LIST changes: +PEPCID40 MG PO; +ZOFRAN4 MG ORAL
[2017-09-10] MEDS ORDERED: Metoclopramide 10mg/2ml Inj IVP ONE (15:00)
[2017-09-10] MEDS ORDERED: Ketorolac 30mg Inj IV ONE (15:00)
[2017-09-10 15:05] VITALS: BP 143/85
[2017-09-10] MEDS ORDERED: Haloperidol 5mg/ml Inj IM ONE (15:15)
[2017-09-10] MEDS ORDERED: UNOBMED (15:49)
--- NOTE | 2017-09-10 15:56 | Emergency Room Report ---
History of Present Illness General Chief Complaint: Abdominal Pain Source: Patient Present Illness HPI 32-year-old male brought in by EMS for intractable abdominal pain and vomiting "for many months". Patient states "I have this all the time and no one listens to me." Review of EMR shows the patient has been here many times before for similar complaint. Has had conference workup in the past. He does history of marijuana abuse, however patient states he stopped smoking marijuana because "you guys for me to stop". Patient denies actual vomitus, just a lot of" dry heaving." States pain is "all over", no associated diarrhea, fever or chills.. Previous abdominal or pelvic surgery. Also has history of alcohol abuse. Allergies: Coded Allergies: No Known Allergies (Unverified , 04/26/17) Patient History Past Medical History: see triage record, old chart reviewed Past Surgical History: none Pertinent Family History: none Social History: Reports: alcohol use Immunizations: UTD Reviewed Nursing Documentation: PMH: Agreed, PSxH: Agreed Nursing Documentation-PMH Hx Cardiac Problems: Yes Hx Hypertension: Yes Hx Diabetes: No Hx Cancer: No Hx Dialysis: No History Of Psychiatric Problem: No Hx Neurological Problems: No Hx Cerebrovascular Accident: No Hx Seizures: No Review of Systems All Other Systems: negative except mentioned in HPI Physical Exam Vital Signs Date Time Temp Pulse Resp B/P (MAP) Pulse Ox O2 Delivery O2 Flow Rate FiO2 09/10/17 14:52 98.1 120 18 115/93 97 09/10/17 15:05 Room Air Sp02 EP Interpretation: reviewed, normal General Appearance: normal inspection, well appearing, no apparent distress, alert, GCS 15, non-toxic, other - dry heaving in emesis bag Head: normocephalic, atraumatic Eyes: bilateral eye PERRL, bilateral eye EOMI ENT: normal ENT inspection, hearing grossly normal, normal voice Neck: normal inspection, full range of motion, supple, no bony tend Respiratory: normal inspection, lungs clear, normal breath sounds, no respiratory distress, no retraction, no wheezing Cardiovascular #1: regular rate, rhythm, no edema Gastrointestinal: normal inspection, normal bowel sounds, non tender, soft, no guarding, no hernia Genitourinary: no CVA tenderness Musculoskeletal: normal inspection, back normal, normal range of motion, Priya' s Sign negative Neurologic: normal inspection, alert, oriented x3, responsive, 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 nml as tested, motor strength/tone normal, speech normal Psychiatric: normal inspection, judgement/insight normal, mood/affect normal Skin: normal inspection, normal color, no rash Lymphatic: normal inspection Medical Decision Making Diagnostic Impression: Primary Impression: Abdominal pain Qualified Codes: R10.84 - Generalized abdominal pain ER Course Patient with intractable abdominal pain and dry heaving History of alcohol abuse, with known gastritis Gastritis likely contribute to symptoms Symptoms resolved with low-dose IM Haldol Patient also given fluid for hydration Patient also given hydration He was much better previous CT showed hepatic steatosis Patient did not want to wait for lab results, CMP shows elevated AST, ALT and bili - elevation consistent with previous. I doubt biliary obstruction given no right upper quadrant tenderness or other focal tenderness on exam of abdomen ER course: Patient has remained stable during ED stay. Patient is to be discharged to home. Patient is instructed to follow up with their primary care doctor within 5 days. Strict return precautions discussed with patient such as fever, chills, worsening/severe pain, nausea, vomiting, which may indicate severe illness. Patient verbalizes understanding and agrees with plan. Please note that this Emergency Department Report was dictated using [employer] helper technology software, occasionally this can lead to erroneous entry secondary to interpretation by the dictation equipment Last Vital Signs Date Time Temp Pulse Resp B/P (MAP) Pulse Ox O2 Delivery O2 Flow Rate FiO2 09/10/17 15:05 98.1 122 19 143/85 98 Room Air Status: improved Disposition: HOME, SELF-CARE Referrals: [facility] (PCP) ALYSE IVEY M.D. Sep 10, 2017 15:56
[2017-09-10 16:04] LABS: ANION GAP 16 mmol/L (5-15); CALCIUM 8.3 MG/DL (8.5-10.1); CARBON DIOXIDE 22 MMOL/L (21-32); CHLORIDE 99 MMOL/L (98-107); CREATININE 1.3 MG/DL (0.55-1.30); GLOMERULAR FILTRATION RATE > 60 mL/min (>60); POTASSIUM 3.6 MMOL/L (3.5-5.1); SODIUM 137 MMOL/L (136-145)
[2017-09-10 16:14] LABS: ALANINE AMINOTRANSFERASE 195 U/L (12-78); ALBUMIN/GLOBULIN RATIO 0.9 (1.0-2.7); ASPARTATE AMINO TRANSFERASE 312 U/L (15-37); LIPASE 125 U/L (73-393); TOTAL PROTEIN 6.7 G/DL (6.4-8.2)
[2017-09-10 16:16] LABS: BILIRUBIN,DIRECT 4.2 MG/DL (0.0-0.3)
[2017-09-10 16:23] VITALS: BP 112/74
== END 2017-09-10 16:25 | disposition home or self-care (01) ==
LOC: EDBD 14:56 → EMR 15:21
DX: R10.84 Generalized abdominal pain (principal); I10 Essential (primary) hypertension
CPT/HCPCS: 36415; 80053; 82248; 83690; 96361; 96372; 96374; 99284; J1630

== ENCOUNTER 2017-10-18 14:44 | Emergency (ER) | payer OTHER ==
[~2017-10-18] VITALS: Ht 170.2 cm; Wt 54.4 kg
[~2017-10-18 14:44] MED LIST changes: +UNOBMED
[2017-10-18 16:04] LABS: BASOPHILS % (AUTO) 3.4 % (0.0-2.0); HEMOGLOBIN 11.8 G/DL (14.2-18.0); LYMPHOCYTES % (AUTO) 47.7 % (20.0-45.0); MEAN CORPUSCULAR VOLUME 108 FL (80-99); MONOCYTES % (AUTO) 6.3 % (1.0-10.0); NEUTROPHILS % (AUTO) 41.5 % (45.0-75.0); PLATELET COUNT 229 K/UL (150-450); RED BLOOD COUNT 3.25 M/UL (4.70-6.10); RED CELL DISTRIBUTION WIDTH 13.1 % (11.6-14.8); WHITE BLOOD COUNT 3.6 K/UL (4.8-10.8)
[2017-10-18 16:22] LABS: ANION GAP 9 mmol/L (5-15); BLOOD UREA NITROGEN 12 mg/dL (7-18); CALCIUM 8.6 MG/DL (8.5-10.1); CARBON DIOXIDE 26 MMOL/L (21-32); CHLORIDE 109 MMOL/L (98-107); POTASSIUM 3.3 MMOL/L (3.5-5.1); SODIUM 144 MMOL/L (136-145)
[2017-10-18 16:33] LABS: ALANINE AMINOTRANSFERASE 186 U/L (12-78); ALBUMIN 3.3 G/DL (3.4-5.0); ALBUMIN/GLOBULIN RATIO 0.9 (1.0-2.7); ALKALINE PHOSPHATASE 175 U/L (46-116); ASPARTATE AMINO TRANSFERASE 223 U/L (15-37); BILIRUBIN,TOTAL 1.4 MG/DL (0.2-1.0)
[2017-10-18 16:35] LABS: BILIRUBIN,DIRECT 1.2 MG/DL (0.0-0.3)
--- NOTE | 2017-10-18 16:53 | Diagnostic Imaging Report ---
Indication: Chest pain Comparison: 08/03/2017 A single view chest radiograph was obtained. Findings: Cardiomediastinal appearance is within normal limits for age. Pulmonary vascularity is appropriate. The diaphragmatic contour is smooth and costophrenic angles are sharp. No pleural effusions are identified. The bones are unremarkable. Impression: No acute findings
[2017-10-18 17:11] VITALS: BP 120/74
[2017-10-18] MEDS ORDERED: RANITIDINE HCL150 MG ORAL (17:45)
[2017-10-18] MEDS ORDERED: ZOFRAN ODT4 MG ORAL (17:45)
[2017-10-18 18:00] VITALS: BP 99/61
--- NOTE | 2017-10-18 22:25 | Emergency Room Report ---
History of Present Illness General Chief Complaint: Abdominal Pain Source: Patient, Medical Record Present Illness HPI 32-year-old male presents ED for evaluation. Patient presents with abdominal pain and vomiting which started today. Pain is epigastric, sharp, 7/10, nonradiating. Patient admits to alcohol use. States his last drink today. States he's having chest pain. States his heart is racing. She feels has history of pneumothorax. Patient states he's been here many times" nothing is ever done for me". Denies drug use. No other aggravating relieving factors. Denies any other associated symptoms Allergies: Coded Allergies: Spicer (Unverified Allergy, Unknown, 10/18/17) Patient History Past Medical History: HTN Past Surgical History: none Pertinent Family History: none Social History: Denies: smoking, alcohol use, drug use Immunizations: UTD Reviewed Nursing Documentation: PMH: Agreed, PSxH: Agreed Nursing Documentation-PMH Past Medical History: No History, Except For Hx Cardiac Problems: Yes Hx Hypertension: Yes Hx Diabetes: No Hx Cancer: No Hx Dialysis: No Hx Neurological Problems: No Hx Cerebrovascular Accident: No Hx Seizures: No Review of Systems All Other Systems: negative except mentioned in HPI Physical Exam Vital Signs Date Time Temp Pulse Resp B/P (MAP) Pulse Ox O2 Delivery O2 Flow Rate FiO2 10/18/17 14:38 98.1 122 18 150/68 99 Room Air Sp02 EP Interpretation: reviewed, normal General Appearance: no apparent distress, alert, GCS 15, non-toxic Head: normocephalic, atraumatic Eyes: bilateral eye normal inspection, bilateral eye PERRL ENT: hearing grossly normal, normal pharynx, no angioedema, normal voice Neck: full range of motion, supple/symm/no masses Respiratory: chest non-tender, lungs clear, normal breath sounds, speaking full sentences Cardiovascular #1: regular rate, rhythm, no edema Cardiovascular #2: 2+ carotid (R), 2+ carotid (L), 2+ radial (R), 2+ radial (L) , 2+ dorsalis pedis (R), 2+ dorsalis pedis (L) Gastrointestinal: normal bowel sounds, non tender, soft, non-distended, no guarding, no rebound Rectal: deferred Genitourinary: normal inspection, no CVA tenderness Musculoskeletal: back normal, gait/station normal, normal range of motion, non- tender Neurologic: alert, oriented x3, responsive, motor strength/tone normal, sensory intact, speech normal Psychiatric: judgement/insight normal, memory normal, mood/affect normal, no suicidal/homicidal ideation Reflexes: 3+ bicep (R), 3+ bicep (L), 3+ tricep (R), 3+ tricep (L), 3+ knee (R) , 3+ knee (L) Skin: normal color, no rash, warm/dry, well hydrated Lymphatic: no adenopathy Medical Decision Making Diagnostic Impression: Primary Impression: Gastritis Qualified Codes: K29.20 - Alcoholic gastritis without bleeding Additional Impression: Alcohol abuse ER Course Hospital Course 32-year-old M presents to ED with epigastric pain with N/V. differential diagnosis: gastritis, SBO, cholecystits Clinical course Patient placed on stretcher. On treatment supervisor. After initial history and physical I ordered labs, IV fluids, Zofran and pepcid, EKG, CXR Labs - no leukocytosis, no electrolyte abnormalities, LFTs elevated, trop negative EKG - NSR, no acute ischemic changes interpreted by me CXR - no consolidation, no PTX I reviewed EMR. Patient has been here multiple times for similar presentation. There is no acute emergent condition here patient can be safely discharged to home. Vital stable. No evidence of pneumothorax. No evidence of alcohol withdrawal. I feel this is a highly complex case requiring extensive working including EKG/ Rhythm strip, Xray/CT/US, Blood/urine lab work, repeat exams while in ED, and administration of strong opiates/narcotics for pain control, admission to hospital or close patient follow up. Diagnosis - gastritis, alcohol abuse Stable and discharged to home with prescriptions for Zantac, zofran. Followup with PMD. Return to ED if symptoms recur or worsen Labs Test 10/18/17 15:25 White Blood Count 3.6 K/UL (4.8-10.8) Red Blood Count 3.25 M/UL (4.70-6.10) Hemoglobin 11.8 G/DL (14.2-18.0) Hematocrit 35.0 % (42.0-52.0) Mean Corpuscular Volume 108 FL (80-99) Mean Corpuscular Hemoglobin 36.4 PG (27.0-31.0) Mean Corpuscular Hemoglobin Concent 33.8 G/DL (32.0-36.0) Red Cell Distribution Width 13.1 % (11.6-14.8) Platelet Count 229 K/UL (150-450) Mean Platelet Volume 7.0 FL (6.5-10.1) Neutrophils (%) (Auto) 41.5 % (45.0-75.0) Lymphocytes (%) (Auto) 47.7 % (20.0-45.0) Monocytes (%) (Auto) 6.3 % (1.0-10.0) Eosinophils (%) (Auto) 1.0 % (0.0-3.0) Basophils (%) (Auto) 3.4 % (0.0-2.0) Sodium Level 144 MMOL/L (136-145) Potassium Level 3.3 MMOL/L (3.5-5.1) Chloride Level 109 MMOL/L (98-107) Carbon Dioxide Level 26 MMOL/L (21-32) Anion Gap 9 mmol/L (5-15) Blood Urea Nitrogen 12 mg/dL (7-18) Creatinine 1.0 MG/DL (0.55-1.30) Estimat Glomerular Filtration Rate > 60 mL/min (>60) Glucose Level 84 MG/DL (74-106) Calcium Level 8.6 MG/DL (8.5-10.1) Total Bilirubin 1.4 MG/DL (0.2-1.0) Direct Bilirubin 1.2 MG/DL (0.0-0.3) Aspartate Amino Transf (AST/SGOT) 223 U/L (15-37) Alanine Aminotransferase (ALT/SGPT) 186 U/L (12-78) Alkaline Phosphatase 175 U/L (46-116) Troponin I 0.000 ng/mL (0.000-0.056) Total Protein 6.9 G/DL (6.4-8.2) Albumin 3.3 G/DL (3.4-5.0) Globulin 3.6 g/dL Albumin/Globulin Ratio 0.9 (1.0-2.7) Lipase 212 U/L (73-393) EKG Diagnostic Results Rate: tachycardiac Rhythm: NSR ST Segments: no acute changes ASA given to the pt in ED: No Rhythm Strip Diag. Results EP Interpretation: yes Rhythm: NSR, no PVC's, no ectopy Chest X-Ray Diagnostic Results Chest X-Ray Diagnostic Results : Chest X-Ray Ordered: Yes # of Views/Limited/Complete: 1 View Indication: Chest Pain EP Interpretation: Yes Interpretation: no consolidation, no effusion, no pneumothorax, no acute cardiopulmonary disease Impression: No acute disease Electronically Signed by: Electronically signed by Fran Escobedo MD Last Vital Signs Date Time Temp Pulse Resp B/P (MAP) Pulse Ox O2 Delivery O2 Flow Rate FiO2 10/18/17 18:00 71 18 99/61 97 Room Air 10/18/17 17:11 97.5 Status: improved Disposition: HOME, SELF-CARE Condition: Stable Scripts Ondansetron Odt* (ZOFRAN ODT*) 4 Mg Tab.rapdis 4 MG ORAL Q6H Y for Nausea & Vomiting, #30 TAB 0 Refills Prov: FRAN ESCOBEDO M.D. 10/18/17 Ranitidine Hcl* (ZANTAC*) 150 Mg Tablet 150 MG ORAL TWICE A DAY, #30 TAB Prov: FRAN ESCOBEDO M.D. 10/18/17 Referrals: [facility] (PCP) Patient Instructions: Gastritis, Adult FRAN ESCOBEDO M.D. Oct 18, 2017 22:25
== END 2017-10-18 18:00 | disposition home or self-care (01) ==
LOC: EDBD 14:44 → EMR 15:25
DX: K29.70 Gastritis, unspecified, without bleeding (principal); F10.10 Alcohol abuse, uncomplicated; I10 Essential (primary) hypertension
CPT/HCPCS: 36415; 71045; 80053; 82248; 83690; 84484; 85025; 93005; 96361; 96374; 96375; 99284; J2405; S0028